=== PATIENT | female | born 1960 | race Caucasian/White ===

== ENCOUNTER 2017-01-22 05:36 | Emergency (ER) | payer SELFPAY ==
[2017-01-22 06:42] LABS: APPEARANCE,URINE CLOUDY; BILIRUBIN,URINE NEGATIVE (NEGATIVE); GLUCOSE, URINE NEGATIVE (NEGATIVE); KETONES,URINE NEGATIVE (NEGATIVE); LEUKOCYTE ESTERASE,URINE TRACE (NEGATIVE); NITRITE,URINE POSITIVE (NEGATIVE); PROTEIN,URINE >=500 mg/dL (NEGATIVE); URINE SPECIFIC GRAVITY 1.026
[2017-01-22] MEDS ORDERED: LIDOCAINE 1% INJ-PF (10 MG/ML) 30 ML SDV INFIL ONE (06:58)
[2017-01-22] MEDS ORDERED: CEFTRIAXONE INJ 1000 MG VIAL IM ONE (06:58)
--- NOTE | 2017-01-22 07:01 | ER Document Report ---
ED General - General Chief Complaint: Pain With Urination Stated Complaint: PAINFUL URINATION Time Seen by Provider: 01/22/17 06:02 TRAVEL OUTSIDE OF THE [place] IN LAST 30 DAYS: No - HPI Patient complains to provider of: Painful urination Notes: Patient coming in for evaluation of painful urination ongoing for the last week states taking Azo however no relief. Patient states lower back pain no fevers or chills. Patient states history of UTIs in the past however has not been on any antibiotics recently. Patient states that she is currently sexually active however no recent sexual intercourse denies any vaginal discharge. Patient otherwise is in no obvious distress upon my evaluation - Related Data Allergies/Adverse Reactions: No Known Allergies Allergy (Verified 01/22/17 05:43) Past Medical History - Social History Smoking Status: Current Every Day Smoker Chew tobacco use (# tins/day): No Frequency of alcohol use: None Drug Abuse: None Family History: Reviewed & Not Pertinent - Past Medical History Cardiac Medical History: Reports: Hx Hypertension Endocrine Medical History: Reports: Hx Diabetes Mellitus Type 2, Hx Hypothyroidism Renal/ Medical History: Denies: Hx Peritoneal Dialysis - Immunizations Hx Diphtheria, Pertussis, Tetanus Vaccination: No Review of Systems - Review of Systems Constitutional: No symptoms reported EENT: No symptoms reported Cardiovascular: No symptoms reported Respiratory: No symptoms reported Gastrointestinal: No symptoms reported Genitourinary: Dysuria Female Genitourinary: No symptoms reported Musculoskeletal: No symptoms reported Skin: No symptoms reported Hematologic/Lymphatic: No symptoms reported Neurological/Psychological: No symptoms reported -: Yes All other systems reviewed and negative Physical Exam - Vital signs Vitals: Temp Pulse Resp BP Pulse Ox 98.4 F 83 13 142/92 H 96 01/22/17 05:42 01/22/17 05:42 01/22/17 05:42 01/22/17 05:42 01/22/17 05:42 Interpretation: Normal - General General appearance: Appears well, Alert - HEENT Head: Normocephalic, Atraumatic Eyes: Normal Pupils: PERRL - Respiratory Respiratory status: No respiratory distress Chest status: Nontender Breath sounds: Normal Chest palpation: Normal - Cardiovascular Rhythm: Regular Heart sounds: Normal auscultation Murmur: No - Abdominal Inspection: Normal Distension: No distension Bowel sounds: Normal Tenderness: Nontender Organomegaly: No organomegaly - Back Back: Normal, Nontender - Extremities General upper extremity: Normal inspection, Nontender, Normal color, Normal ROM , Normal temperature General lower extremity: Normal inspection, Nontender, Normal color, Normal ROM , Normal temperature, Normal weight bearing. No: Cali's sign - Neurological Neuro grossly intact: Yes Cognition: Normal Orientation: AAOx4 Ant[place]mo Coma Scale Eye Opening: Spontaneous [place] Coma Scale Verbal: Oriented Ant[place]mo Coma Scale Motor: Obeys Commands [place] Coma Scale Total: 15 Speech: Normal Motor strength normal: LUE, RUE, LLE, RLE Sensory: Normal - Psychological Associated symptoms: Normal affect, Normal mood - Skin Skin Temperature: Warm Skin Moisture: Dry Skin Color: Normal Course - Re-evaluation Re-evalutation: 01/22/17 07:31 Patient coming in for dysuria urinalysis shows obvious urinary tract infection will send urine for culture will send the patient home with Keflex patient did receive a shot of Rocephin here patient was encouraged to follow-up with her primary care physician. - Vital Signs Vital signs: Temp Pulse Resp BP Pulse Ox 98.4 F 83 13 142/92 H 96 01/22/17 05:42 01/22/17 05:42 01/22/17 05:42 01/22/17 05:42 01/22/17 05:42 - Laboratory Laboratory results interpreted by me: 01/22/17 06:03 Urine Protein >=500 H Urine Blood MODERATE H Urine Nitrite POSITIVE H Urine Urobilinogen 4.0 H Ur Leukocyte Esterase TRACE H Discharge - Discharge Clinical Impression: UTI (urinary tract infection) Qualifiers: Urinary tract infection type: site unspecified Hematuria presence: with hematuria Qualified Code(s): N39.0 - Urinary tract infection, site not specified Condition: Good Disposition: HOME, SELF-CARE Instructions: Cephalexin ([facility]), Urinary Tract Infection ([facility]) Additional Instructions: Continue to take Azo [id number]-[id number] for pain control he may also take Tylenol and Motrin for pain control. We will see in your urine for culture he will take approximately 48-72 hours for the culture to return showing what bacteria is causing infection also exactly what antibiotic we need to put you on. If we need to change her antibiotic we will call you if you do not hear from us that we did not need to change her antibiotic. I am going to send you home with antibiotic called Keflex he may start this soon to get the prescription filled. Prescriptions: Cephalexin Monohydrate [Keflex 500 mg Capsule] 500 mg PO Q6H 7 Days capsule Forms: Return to Work
[2017-01-22 08:03] VITALS: BP 133/89
== END 2017-01-22 08:03 | disposition home or self-care (01) ==
LOC: ER 05:36
DX: N39.0 Urinary tract infection, site not specified (principal); R30.9 Painful micturition, unspecified; F17.200 Nicotine dependence, unspecified, uncomplicated
CPT/HCPCS: 99283; 96372; 87086; 87088; 81001; 87186; J3490; J0696

== ENCOUNTER 2017-08-03 15:15 | Emergency (ER) | payer BC ==
[2017-08-03] MEDS ORDERED: ACETAMINOPHEN 325 MG TABLET PO ONE (16:59)
--- NOTE | 2017-08-03 17:00 | ER Document Report ---
ED Medical Screen (RME) - General Chief Complaint: Leg Pain Stated Complaint: LEFT LEG INJURY Time Seen by Provider: 08/03/17 16:52 TRAVEL OUTSIDE OF THE [place] IN LAST 30 DAYS: No - HPI Notes: 08/03/17 16:55 Patient is a 57-year-old female with a history of diabetes who presents to the ED complaining of left leg pain and left foot numbness status post injury prior to arrival. Patient states that she was helping carry something inside when she tripped and hit the anterior lower leg off of the corner of a brick step. Patient states that since then she has had numbness to her foot and her foot feels cold. Patient states that she has been unable to ambulate and weight- bear on that foot since then. Patient did place a triple antibiotic ointment over her abrasion. Denies any drug allergies. No other concerns or complaints. Patient did take Motrin 2hrs prior to arrival. Denies any headache , fever, head injury, neck pain, URI, sore throat, chest pain, palpitations, syncope, cough, shortness of breath, wheeze, dyspnea, abdominal pain, nausea/ vomiting/diarrhea, urinary retention, dysuria, hematuria, loss of control of bowel or bladder, saddle anesthesia, or rash. I have treated and performed a rapid initial assessment of this patient. A comprehensive ED assessment and evaluation of the patient, analysis of test results and completion of medical decision making process will be conducted by additional ED providers. PHYSICAL EXAMINATION: GENERAL: Well-appearing, well-nourished and in no acute distress. A&Ox4. Answers questions appropriately. LUNGS: Breath sounds clear to auscultation bilaterally and equal. No wheezes rales or rhonchi. HEART: Regular rate and rhythm without murmurs, rubs, gallops. MS: Left leg/foot: There is a superficial abrasion to the anterior tib/fib. + tenderness to this area to palp. 2+ PT/DP pulse. Foot is not cold to the touch. Pt is having noted difficulty with dorsiflexion. + dec sensation to the dorsal foot. No pallor. Extremities: No cyanosis, clubbing, or edema b/l. NEUROLOGICAL: Normal speech. PSYCH: Normal mood, normal affect. - Related Data Allergies/Adverse Reactions: No Known Allergies Allergy (Verified 08/03/17 15:16) Past Medical History - Past Medical History Cardiac Medical History: Reports: Hx Hypertension Endocrine Medical History: Reports: Hx Diabetes Mellitus Type 2, Hx Hypothyroidism Renal/ Medical History: Denies: Hx Peritoneal Dialysis - Immunizations Hx Diphtheria, Pertussis, Tetanus Vaccination: No Physical Exam - Vital signs Vitals: Temp Pulse Resp BP Pulse Ox 99.0 F 88 16 110/82 93 08/03/17 15:25 08/03/17 15:25 08/03/17 15:25 08/03/17 15:25 08/03/17 15:25 Course - Vital Signs Vital signs: Temp Pulse Resp BP Pulse Ox 99.0 F 88 16 110/82 93 08/03/17 15:25 08/03/17 15:25 08/03/17 15:25 08/03/17 15:25 08/03/17 15:25
--- NOTE | 2017-08-03 17:21 | RADIOLOGY REPORT (SQ) ---
EXAM DESCRIPTION: TIBIA FIBULA LEFT COMPLETED DATE/TIME: 08/03/2017 5:13 pm REASON FOR STUDY: pain s/p injury COMPARISON: None. NUMBER OF VIEWS: Two views. TECHNIQUE: Two radiographic images acquired of the left tibia and fibula to include the knee and ank le in at least one projection. LIMITATIONS: None. FINDINGS: MINERALIZATION: Normal. BONES: No acute fracture or dislocation. No worrisome bone lesions. SOFT TISSUES: No obvious swelling or foreign body. OTHER: No other significant finding. IMPRESSION: NEGATIVE STUDY OF THE LEFT TIBIA AND FIBULA. NO RADIOGRAPHIC EVIDENCE OF ACUTE INJURY. TECHNICAL DOCUMENTATION: JOB ID: [id number] [employer]- All Rights Reserved Reading location - IP/workstation name: [email or web address]
--- NOTE | 2017-08-03 18:13 | ER Document Report ---
ED Extremity Problem, Lower - General Chief Complaint: Leg Pain Stated Complaint: LEFT LEG INJURY Time Seen by Provider: 08/03/17 16:52 Mode of Arrival: Ambulatory Information source: Patient TRAVEL OUTSIDE OF THE [place] IN LAST 30 DAYS: No - HPI Patient complains to provider of: Injury Location: Leg - LEFT Occurred: Yesterday Where: Home Onset/Duration: Sudden Quality of pain: Sharp, Throbbing Severity: Moderate - COMPLAINS BITTERLY BUT EASILY DISTRACTED. Context: Fell Recent injury: Yes - STUMBLED & FELL, STRUCK LEG ON NEGIN STEPS Associated symptoms: Unable to bear weight Exacerbated by: Movement Relieved by: Elevation Other injuries: NONE - Related Data Allergies/Adverse Reactions: No Known Allergies Allergy (Verified 08/03/17 15:16) Past Medical History - General Information source: Patient - Social History Smoking Status: Unknown if Ever Smoked Frequency of alcohol use: Rare Drug Abuse: None Lives with: Spouse/Significant other Family History: Reviewed & Not Pertinent - Past Medical History Cardiac Medical History: Reports: Hx Hypertension Pulmonary Medical History: Reports: None EENT Medical History: Reports: None Neurological Medical History: Reports: None Endocrine Medical History: Reports: Hx Diabetes Mellitus Type 2, Hx Hypothyroidism Renal/ Medical History: Reports: None. Denies: Hx Peritoneal Dialysis Malignancy Medical History: Reports: None GI Medical History: Reports: None Musculoskeltal Medical History: Reports None Psychiatric Medical History: Reports: None Surgical Hx: Negative - Immunizations Hx Diphtheria, Pertussis, Tetanus Vaccination: No Review of Systems - Review of Systems Constitutional: No symptoms reported EENT: No symptoms reported Cardiovascular: No symptoms reported Respiratory: No symptoms reported Gastrointestinal: No symptoms reported Musculoskeletal: See HPI Skin: See HPI Neurological/Psychological: Numbness - TOES, LEFT FOOT Physical Exam - Vital signs Vitals: Temp Pulse Resp BP Pulse Ox 99.0 F 88 16 110/82 93 08/03/17 15:25 08/03/17 15:25 08/03/17 15:25 08/03/17 15:25 08/03/17 15:25 Interpretation: Normal. No: Tachycardic, Tachypneic - General General appearance: Appears well, Alert In distress: None - HEENT Head: Normocephalic Eyes: Normal Conjunctiva: Normal Ears: Normal Nasal: Normal Mouth/Lips: Normal Mucous membranes: Normal - Respiratory Respiratory status: No respiratory distress - Cardiovascular Rhythm: Regular - Abdominal Inspection: Normal Distension: No distension - Extremities General upper extremity: Normal inspection General lower extremity: Other - NO DISPROPORTIONATE PAIN W/ PASSIVE MOTION L. ANKLE. No: Normal inspection - L. LEG (SEE BELOW) Calf: Tender, Abrasion, Ecchymosis. No: Instability Ankle: Normal Foot: Normal, Other - WARM, PINK, CAP. R.F. 2 SEC. - Neurological Neuro grossly intact: No - HYPESTHETIC TO LIGHT TOUCH, L. TOES Cognition: Normal Orientation: AAOx4 [place] Coma Scale Eye Opening: Spontaneous [place] Coma Scale Verbal: Oriented [place] Coma Scale Motor: Obeys Commands Ant[place]mo Coma Scale Total: 15 - Psychological Associated symptoms: Normal affect, Normal mood - Skin Skin Temperature: Warm Skin Moisture: Dry Skin Color: Normal Skin Turgor: Elastic Course - Vital Signs Vital signs: Temp Pulse Resp BP Pulse Ox 99.0 F 88 16 110/82 93 08/03/17 15:25 08/03/17 15:25 08/03/17 15:25 08/03/17 15:25 08/03/17 15:25 Discharge - Discharge Clinical Impression: Abrasion hip/leg Qualifiers: Encounter type: initial encounter Laterality: left Qualified Code(s): S80.812A - Abrasion, left lower leg, initial encounter Contusion of leg, left Qualifiers: Encounter type: initial encounter Qualified Code(s): S80.12XA - Contusion of left lower leg, initial encounter Diabetes type 2, controlled 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 KEEP INJURED LEG ELEVATED ( HIGH POSSIBLE, ABOVE HEART LEVEL) MUCH POSSIBLE. CLEAN AND RE-BANDAGE WOUND ONCE A DAY. MEDS DIRECTED. FOLLOW UP WITH YOUR PRIMARY CARE PROVIDER OR RETURN TO E.R. IF PROBLEMS. Prescriptions: Hydrocodone/Acetaminophen [[place] 5-325 mg Tablet] 1 tab PO Q4HP PRN #14 tablet PRN Reason: For Pain Mupirocin Calcium [Bactroban 2% Cream 15 gm] 1 applic TP BID #1 tube Sulfamethoxazole/Trimethoprim [Sulfamethoxazole-Tmp Ds Tablet] 1 each PO BID # 30 tablet Forms: Return to Work
[2017-08-03 19:03] VITALS: BP 136/87
== END 2017-08-03 19:03 | disposition home or self-care (01) ==
LOC: ER 15:15
DX: S80.812A Abrasion, left lower leg, initial encounter (principal); S80.12XA Contusion of left lower leg, initial encounter; W01.198A Fall on same level from slipping, tripping and stumbling with subsequent striking against other object, initial encounter; Y92.009 Unspecified place in unspecified non-institutional (private) residence as the place of occurrence of the external cause; E11.9 Type 2 diabetes mellitus without complications; I10 Essential (primary) hypertension; E03.9 Hypothyroidism, unspecified
CPT/HCPCS: 99283

== ENCOUNTER 2017-11-15 20:30 | Emergency (ER) | payer BC ==
[2017-11-15] MEDS ORDERED: DIAZEPAM INJ 10 MG/2 ML DISP.SYRIN IV ONE (21:18)
[2017-11-15] MEDS ORDERED: HYDROMORPHONE HCL INJ/PF 2 MG/ML AMPULE IV ONE (21:18)
--- NOTE | 2017-11-15 21:24 | ER Document Report ---
ED General - General Chief Complaint: Back Pain Stated Complaint: BACK PAIN Time Seen by Provider: 11/15/17 20:57 Mode of Arrival: Ambulatory Information source: Patient Notes: 57-year-old female history of chronic back pain sciatica presents with complaints of numbness of her left leg and groin area patient notes she was helping pick someone up yesterday and gradually her pain is worsened. She denies any specific trauma TRAVEL OUTSIDE OF THE [place] IN LAST 30 DAYS: No - HPI Onset: Yesterday Onset/Duration: Persistent Quality of pain: Sharp Severity: Moderate Pain Level: 2 Associated symptoms: Body/muscle aches Exacerbated by: Movement Relieved by: Denies Similar symptoms previously: No Recently seen / treated by doctor: No - Related Data Allergies/Adverse Reactions: No Known Allergies Allergy (Verified 08/03/17 15:16) Past Medical History - Social History Smoking Status: Former Smoker Cigarette use (# per day): No Chew tobacco use (# tins/day): No Smoking Education Provided: No Frequency of alcohol use: Occasional Drug Abuse: None Family History: Reviewed & Not Pertinent Patient has suicidal ideation: No Patient has homicidal ideation: No - Past Medical History Cardiac Medical History: Reports: Hx Hypertension Endocrine Medical History: Reports: Hx Diabetes Mellitus Type 2, Hx Hypothyroidism Renal/ Medical History: Denies: Hx Peritoneal Dialysis - Immunizations Hx Diphtheria, Pertussis, Tetanus Vaccination: No Review of Systems - Review of Systems Notes: REVIEW OF SYSTEMS: CONSTITUTIONAL : Denies fever, chills, or sweats. Denies recent illness. EENT: Denies eye, ear, throat, or mouth pain or symptoms. Denies nasal or sinus congestion or discharge. Denies throat, tongue, or mouth swelling or difficulty swallowing. CARDIOVASCULAR: Denies chest pain. Denies palpitations or racing or irregular heart beat. Denies ankle edema. RESPIRATORY: Denies cough, cold, or chest congestion. Denies shortness of breath, difficulty breathing, or wheezing. GASTROINTESTINAL: Denies abdominal pain or distention. Denies nausea, vomiting , or diarrhea. Denies blood in vomitus, stools, or per rectum. Denies black, tarry stools. Denies constipation. GENITOURINARY: Denies difficulty urinating, painful urination, burning, frequency, blood in urine, or discharge. FEMALE GENITOURINARY: Denies vaginal bleeding, heavy or abnormal periods, irregular periods. Denies vaginal discharge or odor. MUSCULOSKELETAL: Admits to leg pain HEMATOLOGIC : Denies easy bruising or bleeding. LYMPHATIC: Denies swollen, enlarged glands. NEUROLOGICAL: Admits to left leg numbness PSYCHIATRIC: Denies anxiety or stress. Denies depression, suicidal ideation, or homicidal ideation. ALL OTHER SYSTEMS REVIEWED AND NEGATIVE. PHYSICAL EXAMINATION: GENERAL: Well-appearing, well-nourished and in no acute distress. HEAD: Atraumatic, normocephalic. EYES: Pupils equal round and reactive to light, extraocular movements intact, conjunctiva are normal. ENT: Nares patent, oropharynx clear without exudates. Moist mucous membranes. NECK: Normal range of motion, supple without lymphadenopathy LUNGS: Breath sounds clear to auscultation bilaterally and equal. No wheezes rales or rhonchi. HEART: Regular rate and rhythm without murmurs ABDOMEN: Soft, nontender, nondistended abdomen. No guarding, no rebound. No masses appreciated. Female : deferred Musculoskeletal: Normal range of motion, no pitting or edema. No cyanosis. NEUROLOGICAL: Subjective paresthesia left groin and left leg PSYCH: Normal mood, normal affect. SKIN: Warm, Dry, normal turgor, no rashes or lesions noted. Dictation was performed using [employer] voice recognition software Physical Exam - Vital signs Vitals: Temp Pulse Resp BP Pulse Ox 99.1 F 89 17 131/76 H 96 11/15/17 20:33 11/15/17 20:33 11/15/17 20:33 11/15/17 20:33 11/15/17 20:33 Course - Re-evaluation Re-evalutation: 11/15/17 21:24 Given patient's complaints there is obvious concern for cauda equina syndrome, MRI has been ordered emergently, her complaints appear to be subjective in nature but imaging will determine 11/16/17 00:34 It is noted that the patient states her numbness has since resolved, she feels better, the MRI itself notes no significant nerve impingement, there is some muscle inflammation noted no signs of infectious process but appears inflammatory in nature, as a result I will place patient on steroids and give very strict return precautions After performing a Medical Screening Examination, I estimate there is LOW risk for EXPANDING OR RUPTURED ABDOMINAL AORTIC ANEURYSM, CAUDA EQUINA SYNDROME, EPIDURAL MASS LESION, or HERNIATED DISK CAUSING SEVERE SPINAL STENOSIS, thus I consider the discharge disposition reasonable. I have reevaluated this patient multiple times and no significant life threatening changes are noted. The patient and I have discussed the diagnosis and risks, and we agree with discharging home and close follow-up. We also discussed returning to the Emergency Department immediately if new or worsening symptoms occur with the understanding that symptoms and presentations can change. We have discussed the symptoms which are most concerning (e.g., saddle anesthesia, urinary or bowel incontinence or retention, changing or worsening pain) that necessitate immediate return. - Vital Signs Vital signs: Temp Pulse Resp BP Pulse Ox 99.1 F 89 17 131/76 H 96 11/15/17 20:33 11/15/17 20:33 11/15/17 20:33 11/15/17 20:33 11/15/17 20:33 - Diagnostic Test Radiology reviewed: Image reviewed Discharge - Discharge Clinical Impression: Low back pain Qualifiers: Chronicity: chronic Back pain laterality: left Sciatica presence: with sciatica Sciatica laterality: sciatica of left side Qualified Code(s): M54.42 - Lumbago with sciatica, left side; G89.29 - Other chronic pain; G89.29 - Other chronic pain Condition: Stable Disposition: HOME, SELF-CARE Instructions: Low Back Pain ([facility]) Prescriptions: Prednisone [Deltasone 20 mg Tablet] 3 tab PO DAILY 4 Days tablet Referrals: CESAR DURANT MD [Primary Care Provider] - Follow up tomorrow
--- NOTE | 2017-11-16 00:21 | RADIOLOGY REPORT (SQ) ---
MRI lumbar spine without contrast on 11/15/2017 at 9:57 PM CLINICAL INDICATION: Low back pain, numbness extending to feet TECHNIQUE: Multiplanar, multisequence MR images are obtained throughout the lumbar spine without the administration of contrast. This examination was performed on a 1.5 [place] magnet. COMPARISON: None FINDINGS: There is disc desiccation and degeneration of the L2-3 through L4-5 discs. Tiny Schmorl's node formation is noted in the upper lumbar and lower thoracic spine. Mild degenerative endplate changes are noted at L3-4. Facet arthropathy is noted in the mid to lower lumbar spine. There is edema in the paraspinal musculature on the left and mildly on the right posterior to the L3 through upper sacral region. This could be related to muscle strain. Vertebral body height, alignment and signal intensity is otherwise unremarkable. There is normal signal within the conus which terminates at a normal level. At the L2-3 level, mild broad-based disc bulge produces mild canal stenosis and very mild bilateral foraminal narrowing. At the L3-4 level, broad-based disc bulge and mild facet arthropathy produces mild to moderate canal stenosis and mild bilateral foraminal narrowing. At the L4-5 level, mild broad-based disc bulge and facet arthropathy produces mild to moderate canal stenosis and mild to moderate bilateral foraminal narrowing. No other levels of canal stenosis or foraminal narrowing are noted. IMPRESSION: 1. Left greater than right lower lumbar and upper sacral paraspinal muscular edema that may be related to muscle strain versus possibly myositis. 2. Degenerative disc disease and facet arthropathy producing some levels of canal stenosis and foraminal narrowing as above.
[2017-11-16] MEDS ORDERED: DEXAMETHASONE SOD PHOS INJ 10 MG/1 ML VIAL IV ONE (00:29)
[2017-11-16 01:00] VITALS: BP 123/83
== END 2017-11-16 00:53 | disposition home or self-care (01) ==
LOC: ER 20:30
DX: M54.42 Lumbago with sciatica, left side (principal); G89.29 Other chronic pain; R20.0 Anesthesia of skin; I10 Essential (primary) hypertension; E11.9 Type 2 diabetes mellitus without complications; E03.9 Hypothyroidism, unspecified
CPT/HCPCS: 99283; 96374; 96375; 72148; J3360; J1170; J1100

== ENCOUNTER 2020-05-01 06:02 | Emergency (ER) | payer SELFPAY ==
[2020-05-01] MEDS ORDERED: VALACYCLOVIR HCL 500 MG TABLET PO ONE (08:29)
[2020-05-01] MEDS ORDERED: HYDROCODONE/ACETAMINOPHEN 5-325 MG TABLET PO ONE (08:29)
--- NOTE | 2020-05-01 08:49 | ER Document Report ---
Entered by FERNANDA FLORENCE SCRIBE 05/01/20 0810 Acting as scribe for:ADEN RENDON MD ED General - General Chief Complaint: Fever Stated Complaint: FEVEER,CHILLS,ITCHING Time Seen by Provider: 05/01/20 08:08 Primary Care Provider: CESAR DURANT MD [NO LOCAL MD] - Follow up as needed Mode of Arrival: Ambulatory Information source: Patient Notes: This 60 year old female patient presents to the ED today for evaluation after noticing a painful rash on her left lower back that wraps around to her groin x3 days ago. Patient states that the area is very sensitive to touch and she is concerned about shingles. She also reports fever, chills, nausea, vomiting, and diarrhea that started around the same time. 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 Patient states that she moved back from [place] in 08/2019 and has not established a PCP yet. TRAVEL OUTSIDE OF THE [place] IN LAST 30 DAYS: No - Related Data Allergies/Adverse Reactions: No Known Allergies Allergy (Verified 08/03/17 15:16) Home Medications: Metformin, Lisinopril, Levothyroxine Past Medical History - General Information source: Patient, [facility] - Social History Smoking Status: Never Smoker Cigarette use (# per day): No Chew tobacco use (# tins/day): No Smoking Education Provided: No Frequency of alcohol use: Occasional Family History: Reviewed & Not Pertinent - Past Medical History Cardiac Medical History: Reports: Hx Hypertension Endocrine Medical History: Reports: Hx Diabetes Mellitus Type 2, Hx Hypothyroidism Past Surgical History: Reports: Other - ganglion cyst removal - Immunizations Hx Diphtheria, Pertussis, Tetanus Vaccination: No Review of Systems - Review of Systems Constitutional: See HPI, Chills, Fever EENT: No symptoms reported Cardiovascular: No symptoms reported Respiratory: See HPI. denies: Short of breath Gastrointestinal: See HPI, Diarrhea, Nausea, Vomiting. denies: Abdominal pain Genitourinary: No symptoms reported Female Genitourinary: No symptoms reported Musculoskeletal: No symptoms reported Skin: See HPI, Rash Hematologic/Lymphatic: No symptoms reported Neurological/Psychological: No symptoms reported -: Yes All other systems reviewed and negative Physical Exam - Vital signs Vitals: Temp Pulse Resp BP Pulse Ox 98.3 F 89 16 148/111 H 98 05/01/20 06:08 05/01/20 06:08 05/01/20 06:08 05/01/20 06:08 05/01/20 06:08 - General General appearance: Alert In distress: None - HEENT Head: Normocephalic, Atraumatic Eyes: Normal Extraocular movements intact: Yes Pupils: PERRL Neck: Normal, Supple - Respiratory Respiratory status: No respiratory distress Chest status: Nontender Breath sounds: Normal Chest palpation: Normal - Cardiovascular Rhythm: Regular Heart sounds: Normal auscultation Murmur: No - Abdominal Inspection: Obese Distension: No distension Bowel sounds: Normal Tenderness: Nontender - Abdomen soft Organomegaly: No organomegaly - Back Back: Other - There is a erythematous rash that has scabbed over on the left lumbar back over the T10-11 region that wraps around to the front and is very sensitive to touch, appearance which is consistent with shingles - Extremities General upper extremity: Normal inspection General lower extremity: Normal inspection. No: Edema - Neurological Neuro grossly intact: Yes Orientation: AAOx4 [place] Coma Scale Eye Opening: Spontaneous [place] Coma Scale Verbal: Oriented - Psychological Associated symptoms: Normal affect, Normal mood - Skin Skin Temperature: Warm Skin Moisture: Dry Skin Color: Normal Skin irregularity: Rash - There is a erythematous rash that has scabbed over on the left lumbar back over the T10-11 region that wraps around the front and is very sensitive to touch, appearance which is consistent with shingles Course - Re-evaluation Re-evalutation: 05/01/20 09:56 The patient was evaluated during the global COVID-19 pandemic and that diagnosis was suspected/considered upon their initial presentation. Their evaluation, treatment and testing was consistent with current guidelines for patients who present with complaints or symptoms that may be related to COVID-19. - Vital Signs Vital signs: Temp Pulse Resp BP Pulse Ox 98.3 F 89 18 124/83 97 05/01/20 09:59 05/01/20 09:59 05/01/20 09:59 05/01/20 09:59 05/01/20 09:59 - Laboratory Results Result Diagrams: 05/01/20 08:33 05/01/20 08:33 Laboratory Results Interpreted: 05/01/20 05/01/20 08:33 08:33 Glucose 134 H Calcium 10.3 H AST 187 H ALT 158 H Total Protein 8.6 H Urine Bilirubin SMALL H Urine Urobilinogen 4.0 H Ur Leukocyte Esterase LARGE H Critical Laboratory Results Reviewed: No Critical Results - Radiology Results Critical Radiology Results Reviewed: No Critical Results Discharge - Discharge Clinical Impression: Nausea, vomiting and diarrhea Shingles outbreak Qualifiers: Herpes zoster complications: without complications Qualified Code(s): B02.9 - Zoster without complications Urinary tract infection Qualifiers: Urinary tract infection type: site unspecified Hematuria presence: with hematuria Qualified Code(s): N39.0 - Urinary tract infection, site not specified Condition: Stable Disposition: HOME, SELF-CARE Additional Instructions: Shingles You have shingles. Shingles is caused by the chicken pox virus, The virus has been surviving dormant in a nerve cell since you had chicken pox years ago. The virus has spread down a nerve root to reach the skin. Typically, an band-like area of pain and skin sensitivity develops, then small blisters erupt in the area. Shingles lasts two or three weeks, but some times leaves persistent pain. You are contagious -- you can give children chicken pox. But you can't give anyone shingles. Antiviral medicines (such as acyclovir or famciclovir) can help, but the rash usually worsens for about a week. Pain medication is often given if the area hurts. Antihistamines such as Benadryl may be necessary for itching if it does not respond to soda baths and calamine lotion. Sometimes cortisone medicine or nerve-block shots are necessary if pain is severe. If the area remains severely painful as the sores heal, or if you suspect an infection developing in the sores, see your doctor. Gastroenteritis You most likely have gastroenteritis. This is an irritation of the stomach and intestinal tract. It's usually caused by a virus, but can also be caused by bacteria, toxins that cause food poisoning, or excessive alcohol intake. Symptoms may include fever, painful abdominal cramps, nausea, vomiting, and diarrhea. Start with small amounts (two to six ounces) of clear liquids (soft drinks, herb teas, broth, etc). Try to take fluids frequently even if you are vomiting, to prevent dehydration. When liquids are being consumed successfully, advance to small amounts of bland food (mashed potato, toast) for 6 - 12 hours. Gastroenteritis rarely requires medication. It goes away by itself. Use good handwashing so you don't spread germs. Wash underwear in very hot water. If symptoms are severe, talk to the doctor. Call your physician if blood appears in your vomitus or stool, if vomiting lasts longer than 24 hours, if the abdominal pain worsens or becomes localized to one area, or if you develop high fever. Urinary Tract Infection Your evaluation indicates that you have a urinary tract infection. This is due to germs growing in the bladder. This is a common problem. This infection usually responds quickly to antibiotics. Your antibiotic should be taken exactly as prescribed. Drink plenty of fluids -- three to four quarts a day. Occasionally, a bladder anesthetic will be prescribed to help stop the feeling of urgency until the antibiotic has a chance to clear the infection. This may cause your urine to be dark orange. Certain urine infections require a culture. If the doctor obtained a culture, the results will be back in two days. You should call to see if a change in treatment is needed. A repeat urinalysis after you finish treatment is often recommended. The physician will let you know if further testing is required. Call the doctor if you develop fever, chills, flank pain, inability to urinate, or blood in the urine. Take medications as prescribed. Drink plenty of cool clear liquids. Get plenty of rest. Take ibuprofen for pain and fever. Take the pain medication as prescribed if needed. Follow-up with a local primary care provider if not improving. RETURN TO THE EMERGENCY ROOM IF ANY NEW OR WORSENING SYMPTOMS. Prescriptions: Cephalexin Monohydrate [Keflex 500 mg Capsule] 500 mg PO TID #15 capsule Hydrocodone/Acetaminophen [[place] 5-325 mg Tablet] 1 tab PO ASDIR PRN #12 tablet PRN Reason: For Pain Valacyclovir HCl [Valtrex 500 Mg Tablet] 1,000 mg PO TID #20 tablet Referrals: CESAR DURANT MD [NO LOCAL MD] - Follow up as needed I personally performed the services described in the documentation, reviewed and edited the documentation which was dictated to the scribe in my presence, and it accurately records my words and actions.
[2020-05-01 08:54] LABS: ABSOLUTE BASOPHILS # (AUTO) 0.1 10^3/uL (0.0-0.2); ABSOLUTE EOSINOPHILS # (AUTO) 0.2 10^3/uL (0.0-0.6); ABSOLUTE LYMPHOCYTES (AUTO) 1.4 10^3/uL (0.5-4.7); ABSOLUTE MONOCYTES (AUTO) 0.6 10^3/uL (0.1-1.4); ABSOLUTE NEUT (AUTO) 4.8 10^3/uL (1.7-8.2); EOSINOPHILS % (AUTO) 3.5 % (0-6); HEMATOCRIT 42.9 % (36.0-47.0); HEMOGLOBIN 14.8 g/dL (12.0-15.5); LYMPHOCYTES % (AUTO) 19.9 % (13-45); MEAN CORPUSCULAR HEMOGLOBIN 31.5 pg (27.0-33.4); MEAN CORPUSCULAR HGB CONC 34.5 g/dL (32.0-36.0); MEAN CORPUSCULAR VOLUME 91 fl (80-97); PLATELET COUNT 156 10^3/uL (150-450); RED CELL DISTRIBUTION WIDTH 13.2 % (11.5-14.0); SEGMENTED NEUTROPHILS % (AUTO) 67.6 % (42-78); TOTAL CELLS COUNTED % (AUTO) 100 %; WHITE BLOOD COUNT 7.1 10^3/uL (4.0-10.5)
[2020-05-01 09:13] LABS: ALBUMIN 4.7 g/dL (3.5-5.0); ALKALINE PHOSPHATASE 78 U/L (38-126); ANION GAP 11 (5-19); ASPARTATE AMINO TRANSFERASE 187 U/L (14-36); BILIRUBIN,DIRECT 0.3 mg/dL (0.0-0.4); BILIRUBIN,TOTAL 1.1 mg/dL (0.2-1.3); BLOOD UREA NITROGEN 13 mg/dL (7-20); CALCIUM 10.3 mg/dL (8.4-10.2); CARBON DIOXIDE 29 mmol/L (22-30); CHLORIDE 102 mmol/L (98-107); CREATINE KINASE 51 U/L (30-135); GLUCOSE 134 mg/dL (75-110); TOTAL PROTEIN 8.6 g/dL (6.3-8.2)
[2020-05-01 09:28] LABS: APPEARANCE,URINE SLIGHTLY-CLOUDY; COLOR,URINE RED
[2020-05-01 09:29] LABS: BILIRUBIN,URINE SMALL (NEGATIVE); GLUCOSE, URINE NEGATIVE (NEGATIVE); KETONES,URINE NEGATIVE (NEGATIVE); LEUKOCYTE ESTERASE,URINE LARGE (NEGATIVE); NITRITE,URINE NEGATIVE (NEGATIVE); PROTEIN,URINE NEGATIVE (NEGATIVE); URINE SPECIFIC GRAVITY 1.026
[2020-05-01 10:01] VITALS: BP 124/83
== END 2020-05-01 10:06 | disposition home or self-care (01) ==
LOC: ER 06:02
DX: B02.9 Zoster without complications (principal); N39.0 Urinary tract infection, site not specified; R31.9 Hematuria, unspecified; R11.2 Nausea with vomiting, unspecified; R19.7 Diarrhea, unspecified; I10 Essential (primary) hypertension; E11.9 Type 2 diabetes mellitus without complications; E03.9 Hypothyroidism, unspecified; Z79.899 Other long term (current) drug therapy; Z79.84 Long term (current) use of oral hypoglycemic drugs; Z20.828 Contact with and (suspected) exposure to other viral communicable diseases
CPT/HCPCS: 99284; 36415; 87086; 82550; 85025; 0241U ×4; 80053; 81001; C9803